=== PATIENT | male | born 1995 | race Caucasian/White ===

== ENCOUNTER 2020-12-06 07:08 | Outpatient (CLI) | payer SELFPAY ==
--- NOTE | 2020-12-06 10:41 | WPDNEUROLOGY ---
Neurology EEG Report General Information Date of Study: 12/06/20 TEST eeg DIAGNOSIS history of seizures CONDITION OF RECORDING awake and drowsy EEG NUMBER [id number] CLINICAL HISTORY patient reported he used to have episodes of spacing out for 5 to 10 minutes at a time but has not had an episode over the last 2 years and trying to get a CDL EEG DESCRIPTION basic resting occipital frequency consists of large amount of low to medium voltage 8 to 10 hertz per second alpha admixed with low-voltage 15 to 18 hertz per second beta. During drowsiness low-voltage to medium voltage 6 to 7 hertz per second theta activity seen intermittently admixed with low-voltage beta activity. Regular EKG artifact is noted at times. Hyperventilation not done .photic stimulation produced normal drive.Non paroxysmal. Nonfocal. Nonlateralizing. IMPRESSION normal record
== END 2020-12-06 07:09 | disposition home or self-care (01) ==
PROVIDERS: PCP Family Medicine; Visit Provider Physician Assistant
DX: R56.9 Unspecified convulsions (principal)
CPT/HCPCS: 95816